=== PATIENT | female | born 1950 | race Caucasian/White ===

== ENCOUNTER 2016-09-16 12:35 | Emergency (ER) | payer MEDICARE, BC ==
--- NOTE | 2016-09-16 13:55 | ERNOTE ---
Abdominal HPI - General Chief Complaint: Constipation Time Seen by Provider: 09/16/16 13:33 Source: patient - Immun/Allergies/Home Medications Immunizatons: IMMUNIZATION HX Immunizations Up to Date Yes History of Influenza Vaccine No Hx Pneumococcal Vaccination No Allergies/Adverse Reactions: Allergies Penicillins Allergy (Unknown, Verified 09/16/16 13:04) trifluoperazine HCl [From Stelazine] Adverse Reaction (Intermediate, Verified 13:04) facial droop, lax tongue azithromycin [From Zithromax] Adverse Reaction (Mild, Verified 09/16/16 13:04) Nausea erythromycin base [Erythromycin Base] Adverse Reaction (Mild, Verified 09/16/16 13:04) Nausea Home Medications: HOME MEDICATIONS Alprazolam 0.25 mg PO DAILY PRN 12/21/13 [Last Taken Unknown] Aspirin [Aspirin Chewable] 81 mg PO DAILY 12/21/13 [Last Taken Unknown] Atenolol [Tenormin] 25 mg PO DAILY 12/21/13 [Last Taken Unknown] Isosorbide Mononitrate [Imdur] 30 mg PO DAILY 12/21/13 [Last Taken Unknown] Melatonin 10 mg PO HS 12/21/13 [Last Taken Unknown] Nitroglycerin 0.4 mg SL PRN PRN 12/21/13 [Last Taken Unknown] Lactobacillus Combo No.10 [Probiotic] 1 each PO DAILY 06/07/15 [Last Taken Unknown] Meloxicam 7.5 mg PO HS 06/07/15 [Last Taken Unknown] Omeprazole Magnesium [Prilosec Otc] 20 mg PO DAILY 06/07/15 [Last Taken Unknown] Sertraline HCl 25 mg PO DAILY 06/07/15 [Last Taken Unknown] Atorvastatin Calcium [Lipitor] 10 mg PO DAILY 09/16/16 [Last Taken Unknown] - History of Present Illness Narrative: Patient is here for concern about constipation. For years she has had infrequent bowel movement a couple of times a week, then about a year ago she started to have daily normal movements till about three weeks ago. Since then she started to have small hard bowel movements and started to feel bloated and full. She stopped working about three weeks ago and has been less active and maybe changed her diet some due to that. Yesterday she tried prunes and this morning a suppository. Shortly after that she vomited three times (some of the pop corn she had last night). She denies any abdominal pain just fullness, no fever, had a colonoscopy seven years ago. Since her five months ago she lost about 15 lbs Prior Abdominal Problems: Present: none Prior Treatment: Absent: recently seen, currently on antibiotics Review of Systems - Review of Systems Constitutional: Present: chills. Absent: recent illness, fever ENT: Absent: nose congestion, sore throat Respiratory: Absent: shortness of breath, cough Cardiology: Absent: chest pain Gastrointestinal/Abdominal: Present: See HPI Genitourinary: Present: no symptoms reported Neurological: Absent: headache - Patient's Past Medical History Patient History - Medical: Depression, GERD, UTI'S, Other Patient History - Cardiac/Respiratory: Coronary Heart Disease, Other Patient History - Cancer: No Hx of Cancer Patient History - Surgical Procedures: Colonoscopy, Cardiac stent, T & A, Other Patient History - Other: None - Social History Living Situations: home Abuse History: No History of abuse Psych History: Hx of Anxiety Alcohol Use: none Drug Use: none - Immunizations Immunizations Up to Date: Yes Hx Pneumococcal Vaccination: No History of Influenza Vaccine: No Physical Exam - Physical Exam General Appearance: Present: wd/wn, alert, no apparent distress, anxious Respiratory: Present: no respiratory distress, normal breath sounds, no accessory muscle use, lungs clear Cardiovascular/Chest: Present: regular rate, rhythm, no murmur Gastrointestinal/Abdominal: Present: normal bowel sounds, nondistended, soft, tenderness - mild throughout Neurological Exam: Present: alert, oriented, normal mood/affect Skin Exam: Present: normal color, warm/dry ED Progress - Results and Orders Patient's Lab Results:: I have reviewed the patient's lab results. - Vital Signs Patient's Vital Signs:: I have reviewed the patient's vital signs. Vital Signs: Vital Signs 09/16/16 12:57 Temperature 37.5 C Pulse Rate 98 Respiratory 12 Rate Blood Pressure 144/79 O2 Sat by Pulse 96 Oximetry - X-Ray X-Ray #1 X-Ray: abdomen - constipation, no other acute changes Interpretation: Reviewed by me - Progress/Reassessment Chief Complaint: Constipation Progress Note-Subjective: 09/16/16 14:36 explained test results and discussed treatment of constipation no vomiting here Departure - Departure Clinical Impression: Constipation Qualifiers: Constipation type: unspecified constipation type Qualified Code(s): K59.00 - Constipation, unspecified Disposition: Home self-care Condition: Good Instructions: Constipation, Adult, [id number] Additional Instructions: use magnesium citrate and dulcolax or senokot today repeat tomorrow if no results, maybe add fleets enema if worsening pain or repeat vomiting return to the ER otherwise follow up with your doctor, if bowel changes persist you might need to have further testing done Referrals: Stacy Funk, FLOOR TECH [Primary Care Provider] -
[2016-09-16 14:05] LABS: Hematocrit 42.5 % (37.0-47.0); Mean Cell Volume 87.4 fl (78-100); Mean Corpuscular Hemoglobin 28.8 pg (27-31); Mean Corpuscular Hgb Conc 32.9 g/dl (32-36); Mean Platelet Volume 9.6 fl (6.0-9.5); Neutrophil # 8.9 K/mm3 (1.3-6.0); Neutrophil % 94.9 % (42-75.0); Platelet Count 258 K/mm3 (150-450); Red Blood Count 4.86 M/mm3 (4.2-5.4); Red Cell Distribution Width 12.9 % (11.5-14.0); White Blood Count 9.4 K/mm3 (4.0-10.5)
[2016-09-16 14:17] LABS: Albumin * 4.1 gm/dl (3.4-5.0); BUN/Creatinine Ratio 16.8 (9.0-21.6); Bilirubin, Total 0.8 mg/dL (0.0-1.1); Ca. Corrected For Albumin 9.1 mg/dL (8.4-10.2); Calcium * 9.5 mg/dL (7.9-10.9); Carbon Dioxide 26.6 mmol/L (24-32.6); Potassium 4.6 mmol/L (3.4-4.6); Total Protein 7.4 gm/dL (6.2-8.2)
[2016-09-16] MEDS ORDERED: MAGNESIUM CITRATE 300 ML BTL PO ONE (14:39)
[2016-09-16] MEDS ORDERED: MAGNESIUM CITRATE 300 ML BTL ONE (14:47)
[2016-09-16 15:26] VITALS: BP 125/72
== END 2016-09-16 14:50 | disposition home or self-care (01) ==
LOC: ER 12:35
DX: K59.00 Constipation, unspecified (principal)

== ENCOUNTER 2017-06-19 11:12 | Emergency (ER) | payer MEDICARE, BC ==
[2017-06-19] MEDS ORDERED: ASPIRIN 81 MG TAB.CHEW ONE (11:16)
[2017-06-19] MEDS ORDERED: ASPIRIN 81 MG TAB.CHEW PO ONE (11:33)
[2017-06-19] MEDS ORDERED: NITROGLYCERIN 0.4 MG/TAB BTL SL ONE ×2 (11:33→11:41)
[2017-06-19 11:49] LABS: Hematocrit 36.1 % (37.0-47.0); Hemoglobin 12.4 gm/dL (12.5-16.0); Mean Cell Volume 88.3 fl (78-100); Mean Corpuscular Hemoglobin 30.3 pg (27-31); Mean Corpuscular Hgb Conc 34.3 g/dl (32-36); Mean Platelet Volume 9.5 fl (6.0-9.5); Neutrophil # 2.2 K/mm3 (1.3-6.0); Neutrophil % 51.2 % (42-75.0); Platelet Count 238 K/mm3 (150-450); Red Blood Count 4.09 M/mm3 (4.2-5.4); Red Cell Distribution Width 12.4 % (11.5-14.0); White Blood Count 4.4 K/mm3 (4.0-10.5)
[2017-06-19 12:04] LABS: Prothrombin Time (Patient) 10.3 Seconds (9.0-11.0)
[2017-06-19 12:11] LABS: INR 1.03 INR (0.90-1.10)
[2017-06-19 12:13] LABS: ALT 25 U/L (19-67); AST 22 U/L (0-48); Albumin * 3.7 gm/dl (3.4-5.0); Alkaline Phosphatase * 83 U/L (50-170); Anion Gap 10.6 mmol/L (6.8-13.8); BUN/Creatinine Ratio 17.6 (9.0-21.6); Bilirubin, Total 0.6 mg/dL (0.0-1.1); Blood Urea Nitrogen 19 mg/dL (3-23); Ca. Corrected For Albumin 9.2 mg/dL (8.4-10.2); Calcium * 9.3 mg/dL (7.9-10.9); Chloride 106 mmol/L (97-106); Glucose * 91 mg/dL (70-110); Potassium 4.6 mmol/L (3.4-4.6); Sodium 142 mmol/L (132-142); Total Protein 6.8 gm/dL (6.2-8.2); Troponin I Less than 0.017 ng/ml (0.00-0.10)
[2017-06-19] MEDS ORDERED: NITROGLYCERIN 1 INCH PACKET TD ONE (13:29)
[2017-06-19 13:41] VITALS: BP 140/65
--- NOTE | 2017-06-19 13:58 | ERNOTE ---
Chest Pain/Cardiac HPI Date of Service: 06/19/17 Chief Complaint: Chest Pain Time Seen by Provider: 06/19/17 11:28 Source: patient Exam Limitations: no limitations Immunizations: IMMUNIZATION HX Immunizations Up to Date Yes History of Influenza Vaccine No Hx Pneumococcal Vaccination No Allergies/Adverse Reactions: Allergies Penicillins Allergy (Unknown, Verified 06/19/17 11:30) trifluoperazine HCl [From Stelazine] Adverse Reaction (Intermediate, Verified 11:30) facial droop, lax tongue azithromycin [From Zithromax] Adverse Reaction (Mild, Verified 06/19/17 11:30) Nausea erythromycin base [Erythromycin Base] Adverse Reaction (Mild, Verified 06/19/17 11:30) Nausea Home Medications: HOME MEDICATIONS Alprazolam 0.25 mg PO DAILY PRN 12/21/13 [Last Taken Unknown] Aspirin [Aspirin Chewable] 81 mg PO DAILY 12/21/13 [Last Taken Unknown] Isosorbide Mononitrate [Imdur] 30 mg PO DAILY 12/21/13 [Last Taken Unknown] Melatonin 10 mg PO HS 12/21/13 [Last Taken Unknown] Nitroglycerin 0.4 mg SL PRN PRN 12/21/13 [Last Taken Unknown] Sertraline HCl 25 mg PO DAILY 06/07/15 [Last Taken Unknown] Atorvastatin Calcium [Lipitor] 10 mg PO DAILY 09/16/16 [Last Taken Unknown] Cholecalciferol (Vitamin D3) [Vitamin D] 2,000 unit PO DAILY 06/19/17 [Last Taken Unknown] Flaxseed Oil [Flax Seed Oil] 1,000 mg PO DAILY 06/19/17 [Last Taken Unknown] Metoprolol Succinate 12.5 mg PO DAILY 06/19/17 [Last Taken Unknown] Ubidecarenone/Vitamin E Mixed [Hse51-Vxs E 200 mg-20 Unit Sfg] 1 each PO DAILY 06/19/17 [Last Taken Unknown] Narrative: Patient presents to the ED with chest pain. She relates that she has been having stuttering chest pain since Friday. This will come and go without clear cause. She did have one episode of exertional CP yesterday but she is not sure if it was truly exertional or just happened to occur when she was walking. Last night she was awakened by CP and took a NTG that relieved her pain. Currently pain free but earlier today with the pain had radiation down the arm associated with nausea. No acute SOB or diaphoresis. Currently pain free. Stuttering pain for 4 days now. Timing: intermittent Severity/Quality: mild Location: other - central Chest Pain Radiation: arms Activities at Onset: none Modifying Factors - Improves: Present: other - NTG Modifying Factors - Worsens: Present: nothing Nitro Today/Relief: 0.4 mg x 1 Aspirin Treatment Today: provided by ED Associated Symptoms: Absent: syncope, fever/chills, vomiting, abdominal pain Prior Chest Pain/Cardiac Workup: Reports: prior chest pain Prior Treatment: Denies: recently seen Review of Systems - Review of Systems Constitutional: Absent: fever Respiratory: Absent: cough Cardiology: Present: chest pain Gastrointestinal/Abdominal: Absent: abdominal pain Genitourinary: Absent: dysuria Neurological: Absent: weakness All Other Systems: All systems neg except as marked - Patient's Past Medical History Patient History - Medical: Depression, GERD, UTI'S, Other Patient History - Cardiac/Respiratory: Coronary Heart Disease, Other Patient History - Cancer: No Hx of Cancer Patient History - Surgical Procedures: Colonoscopy, Cardiac stent, T & A, Other Patient History - Other: None - Social History Abuse History: No History of abuse Psych History: Hx of Anxiety Smoking Status: Never smoker Have you smoked in the past 12 months: No Do you dip or chew tobacco: No - Immunizations Immunizations Up to Date: Yes Hx Pneumococcal Vaccination: No History of Influenza Vaccine: No Physical Exam - Physical Exam General Appearance: Present: alert, no apparent distress Head Exam: Present: normal inspection, no evidence of injury Eye Exam: Normal inspection: bilateral, PERRL: bilateral Ears, Nose, Throat: Present: normal ENT inspection Neck: Present: normal inspection, nontender Respiratory: Present: no respiratory distress, normal breath sounds, no accessory muscle use, lungs clear Cardiovascular/Chest: Present: regular rate, rhythm, no murmur, normal peripheral pulses Gastrointestinal/Abdominal: Present: normal bowel sounds, nontender, soft. Absent: tenderness Back Exam: Present: normal range of motion Extremity Exam: Present: normal inspection Neurological Exam: Present: alert, normal mood/affect, no motor/sensory deficits. Absent: tile mechanic helper II-XII nml as tested Skin Exam: Present: normal color, warm/dry ED Progress - Results and Orders Patient's Lab Results:: I have reviewed the patient's lab results. - Vital Signs Patient's Vital Signs:: I have reviewed the patient's vital signs. Vital Signs: Vital Signs 06/19/17 06/19/17 06/19/17 11:24 11:29 12:00 Temperature 37.2 C Pulse Rate 71 70 62 Respiratory 18 12 17 Rate Blood Pressure 132/59 115/66 124/68 O2 Sat by Pulse 98 96 98 Oximetry 06/19/17 06/19/17 06/19/17 12:34 13:11 13:40 Temperature Pulse Rate 62 62 66 Respiratory 13 16 14 Rate Blood Pressure 134/77 122/65 140/65 O2 Sat by Pulse 100 98 100 Oximetry - EKG EKG: NSR EKG read: Interp. by me EKG Comments: NSR rate 64. Non-specific ST/T wave changes, no STEMI. - X-Ray X-Ray #1 X-Ray: chest Interpretation: Interp. by me X-ray Comments: I reviewed images and official radiology report - Progress/Reassessment Chief Complaint: Chest Pain Progress Note-Subjective: 06/19/17 13:[address] Conway who accepts transfer to [facility]. patient refused ambulance transfer but will go by private car. Given this I will sign her out AMA. She understands risks of this. AMA from my care as she will not transfer by ambulance by her request. Currently pain free. I had arranged transfer and accepted by Dr Acosta, patient declines this and will be taken by private vehicle. Departure Clinical Impression: Chest pain - Departure Disposition: Against medical advice Condition: Stable Additional Instructions: I recommend you be transferred by ambulance. you are leaving against medical advice, please return in you reconsider. Referrals: Stacy Funk, [employer] [Primary Care Provider] -
== END 2017-06-19 14:00 | disposition left against medical advice (07) ==
LOC: ER 11:12
DX: R07.9 Chest pain, unspecified (principal); Z87.440 Personal history of urinary (tract) infections; Z53.29 Procedure and treatment not carried out because of patient's decision for other reasons; Z95.5 Presence of coronary angioplasty implant and graft

== ENCOUNTER 2019-03-01 08:30 | Inpatient (IN) ==
--- NOTE | 2019-02-10 11:35 | ANES ---
Anesthesia Pre Procedure Eval HOME MEDICATIONS Aspirin [Aspirin Chewable] 81 mg PO DAILY 12/21/13 [Last Taken Unknown] Isosorbide Mononitrate [Imdur] 30 mg PO DAILY 12/21/13 [Last Taken Unknown] Nitroglycerin 0.4 mg SL PRN PRN 12/21/13 [Last Taken Unknown] Cholecalciferol (Vitamin D3) [Vitamin D] 2,000 unit PO DAILY 06/19/17 [Last Taken Unknown] atenolol 25 mg tablet 25 mg PO DAILY 03/14/18 [Last Taken Unknown] atorvastatin 10 mg tablet 10 mg PO HS tab 03/14/18 [Last Taken Unknown] melatonin 5 mg tablet See Rx Instructions PO HS 03/14/18 [Last Taken Unknown] prasterone (dhea) 25 mg capsule 25 mg PO DAILY 03/14/18 [Last Taken Unknown] sertraline 50 mg tablet 50 mg PO DAILY 03/14/18 [Last Taken Unknown] coconut oil 1,000 mg capsule 2,000 mg PO DAILY cap 03/19/18 [Last Taken Unknown] coenzyme Q10 200 mg/gram oral powder 200 mg PO DAILY g 03/19/18 [Last Taken Unknown] eszopiclone 2 mg tablet 2 mg PO HS 03/19/18 [Last Taken Unknown] fish oil 400 mg-flaxseed 400 mg-prim,blk scale tank operator,borag oils 200 mg capsule 1 cap PO DAILY cap 03/19/18 [Last Taken Unknown] magnesium stearate powder 1 ea MISCELLANEOUS DAILY g 03/19/18 [Last Taken Unkno wn] turmeric root extract 500 mg capsule 500 mg PO DAILY 03/19/18 [Last Taken Unknown] diclofenac 1 % topical gel 1 appl TP QID PRN #300 g 01/07/19 [Last Taken Unknown] Multivitamin [Daily Multiple Vitamin] 1 ea PO DAILY 02/10/19 [Last Taken Unknown] Allergies/Adverse Reactions: Allergies Allergy/AdvReac Type Severity Reaction Status Date / Time Penicillins Allergy Unknown unknown Verified 02/10/19 08:33 trifluoperazine HCl AdvReac Intermediate facial Verified 02/10/19 08:33 [From Stelazine] droop, lax tongue azithromycin [From Zithromax] AdvReac Mild Nausea/Vomi Verified 02/10/19 08:33 ting erythromycin base AdvReac Mild Nausea Verified 02/10/19 08:33 [Erythromycin Base] atorvastatin AdvReac causes Verified 02/10/19 08:33 body aches simvastatin AdvReac Causes Verified 02/10/19 08:33 body aches - Planned Procedure Planned Procedure: Arthroplasty Right Total Hip Medication List Reviewed:: Yes Allergies Verified: Yes Medical History (Updated 02/10/19 @ 08:32 by Elena Raymundo RN) Osteoarthritis of hip (Chronic) Medial meniscus tear (Chronic) Anxiety and depression Onset Date: 06/16/15 Coronary artery disease Onset Date: 06/16/15 Diverticulosis of colon Onset Date: Unknown scattered GERD (gastroesophageal reflux disease) Onset Date: 02/17/13 Hyperlipidemia Onset Date: Unknown Insomnia, unspecified Onset Date: Unknown Sleep apnea Onset Date: Unknown wears CPAP Surgical History (Updated 02/10/19 @ 08:32 by Elena Raymundo RN) History of arthroscopic knee surgery Onset Date: 09/2011 left- meniscus tear; 01/04/14 yun-left medial meniscectomy/partial lateral meniscectomy History of colonoscopy Onset Date: 09/29/09 [place] History of tonsillectomy Onset Date: 1955 bunion surgery Onset Date: Unknown right foot heart catheterization Onset Date: 05/12/12 stent Onset Date: 05/12/12 LAD, x 3 ventriculography Onset Date: 05/12/12 Family History (Updated 03/14/18 @ 11:27 by Chelsie Garcia) Mother Hypertension Dementia Glaucoma Cataract Parkinson's disease Father , 80 CVA (cerebral vascular accident) carotid endartecterectomy - Family Anesthesia History Family History:: no untoward family reactions to anesthesia, no familial bleeding tendencies, no family history of clotting disorders - Does C/O "Sleeps way too long", no family history of premature - Airway/Neck/Teeth Denture Type: Partial upper, Partial lower Neck Exam: full range of motion Mallampatti Score: 2 Thyromental (T-M) distance: > 6 cm Mandibulo Hyoid distance: > 3 cm - Respiratory Respiratory History: sleep apnea, CPAP/BiPAP home use Smoking Status: Never smoker Sleep Apnea currently treated: Yes Sleep Apnea by current assessment: Yes - Cardiovascular Cardiac History: angina, arrhythmia - tachycardia by history, Rx with Beta bertha, hypertension, hyperlipidemia Heart Sounds: S1 & S2, Regular, Murmur - grade I - Anesthesia Assessment and Plan ASA Class: PS, III Anesthesia Type Plan: Spinal
[~2019-03-01 08:30] MED LIST: MORPHINE SULFATE 15 MG TABLET.SA PO PRN; ROPIVACAINE HCL/PF 100 MG, EPINEPHrine 0.2 MG, KETOROLAC TROMETHAMINE 30 MG in NORMAL S... IJ PRN; TRANEXAMIC ACID 1,000 MG in NORMAL SALINE 100 ML IV PRN; ceFAZolin SODIUM 1 GM VIAL IV PRN
[2019-03-01] MEDS: RINGER'S SOLUTION,LACTATED 1,000 ML IV PRN ×3 (09:13→11:40)
--- NOTE | 2019-03-01 09:29 | ANES ---
Anesthesia Pre Procedure Eval Vitals/Labs: Last Vital Signs Temp 36.8 C 03/01/19 08:45 Pulse 73 03/01/19 08:45 Resp 18 03/01/19 08:45 BP 110/69 03/01/19 08:45 Pulse Ox 95 03/01/19 08:45 HOME MEDICATIONS Aspirin [Aspirin Chewable] 81 mg PO DAILY 12/21/13 [Last Taken 02/27/19] Isosorbide Mononitrate [Imdur] 30 mg PO DAILY 12/21/13 [Last Taken 03/01/19] Nitroglycerin 0.4 mg SL PRN PRN 12/21/13 [Last Taken Unknown] Cholecalciferol (Vitamin D3) [Vitamin D] 2,000 unit PO DAILY 06/19/17 [Last Taken 02/27/19] atenolol 25 mg tablet 25 mg PO DAILY 03/14/18 [Last Taken 03/01/19] atorvastatin 10 mg tablet 10 mg PO HS tab 03/14/18 [Last Taken 02/28/19] melatonin 5 mg tablet See Rx Instructions PO HS 03/14/18 [Last Taken 02/28/19] prasterone (dhea) 25 mg capsule 25 mg PO DAILY 03/14/18 [Last Taken 02/27/19] sertraline 50 mg tablet 50 mg PO DAILY 03/14/18 [Last Taken 02/27/19] coconut oil 1,000 mg capsule 2,000 mg PO DAILY cap 03/19/18 [Last Taken 02/27/19] coenzyme Q10 200 mg/gram oral powder 200 mg PO DAILY g 03/19/18 [Last Taken 02/27/19] eszopiclone 2 mg tablet 2 mg PO HS 03/19/18 [Last Taken 02/28/19] fish oil 400 mg-flaxseed 400 mg-prim,blk associate scientist,borag oils 200 mg capsule 1 cap PO DAILY cap 03/19/18 [Last Taken 02/27/19] magnesium stearate powder 1 ea MISCELLANEOUS DAILY g 03/19/18 [Last Taken 02/28/19] turmeric root extract 500 mg capsule 500 mg PO DAILY 03/19/18 [Last Taken 02/27/19] diclofenac 1 % topical gel 1 appl TP QID PRN #300 g 01/07/19 [Last Taken 02/22/19] Multivitamin [Daily Multiple Vitamin] 1 ea PO DAILY 02/10/19 [Last Taken 02/27/19] estradiol 0.01% (0.1 mg/gram) vaginal cream VG #43 g 02/25/19 [Last Taken Unknown] estradiol 2 mg (7.5 mcg/24 hour) vaginal ring VG #1 ea 02/25/19 [Last Taken Unknown] modafinil 100 mg tablet 100 mg PO BID tab 02/25/19 [Last Taken 02/27/19] Allergies/Adverse Reactions: Allergies Allergy/AdvReac Type Severity Reaction Status Date / Time trifluoperazine HCl AdvReac Intermediate facial Verified 03/01/19 08:41 [From Stelazine] droop, lax tongue erythromycin base AdvReac Mild Nausea Verified 03/01/19 08:41 [Erythromycin Base] Penicillins AdvReac Mild vomitting, Verified 03/01/19 08:41 age 6 simvastatin AdvReac Causes Verified 03/01/19 08:41 body aches - Planned Procedure Planned Procedure: Arthroplasty Right Total Hip Medication List Reviewed:: Yes Allergies Verified: Yes Medical History (Updated 02/10/19 @ 08:32 by Elena Raymundo RN) Osteoarthritis of hip (Chronic) Medial meniscus tear (Chronic) Anxiety and depression Onset Date: 06/16/15 Coronary artery disease Onset Date: 06/16/15 Diverticulosis of colon Onset Date: Unknown scattered GERD (gastroesophageal reflux disease) Onset Date: 02/17/13 Hyperlipidemia Onset Date: Unknown Insomnia, unspecified Onset Date: Unknown Sleep apnea Onset Date: Unknown wears CPAP Surgical History (Updated 02/10/19 @ 08:32 by Elena Raymundo RN) History of arthroscopic knee surgery Onset Date: 09/2011 left- meniscus tear; 01/04/14 yun-left medial meniscectomy/partial lateral meniscectomy History of colonoscopy Onset Date: 09/29/09 [place] History of tonsillectomy Onset Date: 1955 bunion surgery Onset Date: Unknown right foot heart catheterization Onset Date: 05/12/12 stent Onset Date: 05/12/12 LAD, x 3 ventriculography Onset Date: 05/12/12 Family History (Updated 03/14/18 @ 11:27 by Chelsie Garcia) Mother Hypertension Dementia Glaucoma Cataract Parkinson's disease Father , 80 CVA (cerebral vascular accident) carotid endartecterectomy - Airway/Neck/Teeth Within Normal Limits:: Yes Teeth Condition: intact Denture Type: Partial upper, Partial lower, Perm crown/bridge Mallampatti Score: 2 Thyromental (T-M) distance: > 6 cm Mandibulo Hyoid distance: > 3 cm - Respiratory Respiratory Physical: lungs clear Discussed smoking cessation including day of surgery: No Sleep Apnea currently treated: Yes - Cardiovascular Tolerate Activity: Fair Heart Sounds: S1 & S2, Regular - Anesthesia Assessment and Plan ASA Class: PS, III Anesthesia Type Plan: Spinal
[2019-03-01] MEDS ORDERED: ACETAMINOPHEN 500 MG TABLET PO PRN (11:46)
[2019-03-01] MEDS ORDERED: MORPHINE SULFATE 2 MG/ML DISP.SYRIN IV PRN (11:46)
[2019-03-01] MEDS ORDERED: diphenhydrAMINE HCL 50 MG/ML VIAL IV PRN (11:46)
[2019-03-01] MEDS ORDERED: MAG HYDROX/ALUMINUM HYD/SIMETH 30 ML UDC PO PRN (11:46)
[2019-03-01] MEDS ORDERED: DEXTROSE 5%-LACTATED RINGERS 1,000 ML IV PRN (11:46)
[2019-03-01] MEDS ORDERED: ZOLPIDEM TARTRATE 5 MG TABLET PO PRN (11:46)
[2019-03-01] MEDS ORDERED: ONDANSETRON HCL/PF 2 MG/ML VIAL IV PRN (11:46)
[2019-03-01] MEDS ORDERED: MAGNESIUM HYDROXIDE 30 ML UDC PO PRN (11:46)
[2019-03-01] MEDS ORDERED: NITROGLYCERIN 0.4 MG/TAB BTL SL PRN (11:48)
--- NOTE | 2019-03-01 11:53 | OR ---
Operative Report - Dictated Report Narrative: Date: 03/01/2019 Preoperative diagnosis: Right hip degenerative joint disease. Postoperative diagnosis: Right hip degenerative joint disease. Procedure: Right total hip arthroplasty. Surgeon: Mauri Herrera M.D. Mold Cleaner: Bryant Leonardo PA-C (provided an essential set of skilled, educated and assisted with transfer, positioning, prepping, draping, manipulation, traction, irrigation, suturing, and placement of dressings all of which cannot be performed by the available surgical crew) Anesthesia: Spinal and local periarticular joint injection. Complications: None Specimens: Bone. Estimated blood loss: 100 milliliters. Retained implants: Depuy Dane size 3 femoral stem high offset. Size 52 millimeter outside diameter 3-hole [place] Gription acetabular cup. 52 millimeter outside by 36 millimeter inside diameter highly cross-linked acetabular liner. 36 millimeter diameter +1.5 millimeter ceramic femoral head. Cancellous 6.5mm screw 30 millimeter length Indications: Mrs. Jennings is a 68-year-old female who has had long-standing right hip pain and arthrosis. This patient was followed in my clinic for period of time with significant complaints of right hip pain consistent with arthritic changes. She failed conservative measures including but not limited to activity modification, passage of time, medications, and other conservative measures. Patient wished to proceed with surgical treatment. The risks, benefits, and alternatives were discussed in clinic. The risks of , blood clots, bleeding, infection, nerve/tendon blood vessel/ injury, malposition of components, dislocation and/or instability of joint, intraoperative fracture, postoperative limited range of motion, persistent pain, failure of components, and need for additional procedures. Patient wished to proceed. Consent was obtained after answering all questions. Procedure: After marking the correct extremity on the floor, the patient was taken to the operating room. A timeout was performed. IV antibiotics consisting of Ancef were administered prior to the procedure. A spinal anesthetic was induced by anesthesia. A Moore catheter was inserted. The patient was then transitioned to a lateral position on a well-padded pegboard. An axillary roll was placed. The head was in neutral position. The non- operative down leg was well-padded with SCD and ROHITH hose in place. The arms were supported and padded to protect from any undue pressure on the bony prominences and nerves. A well-padded anterior and posterior pelvic and chest posts were secured in order to maintain a stable position of the pelvis. This was placed so that the pelvis was perpendicular to the floor. The body was in line with the pelvis. Once it was felt that we had protected all the bony prominences and the patient was well secured with a safety belt as well, the leg was pre-scrubbed with alcohol, prepped and draped in a standard sterile fashion. A standard anterior lateral hip incision was marked out over the greater trochanter. Ioban drapes were then placed. The skin incision was then made. Sharp dissection with a scalpel utilizing cautery for hemostasis was carried out down to the gluteus and iliotibial band fascia. This was split in line with the skin incision. The greater trochanter bursa was excised. The anterior and posterior margins of the abductor tendon were identified. The anterior 1/2-1/3 of the tendon was tagged and reflected off the greater trochanter leaving a sleeve of tendon for repair at the completion of the case. This exposed the underlying hip joint capsule. A limb length stitch was placed in the skin and referencedd off a radha on the greater trochanter for evaluation of intraoperative limb lengths. An inverted T-type capsulotomy was made extending this up to the brim of the acetabulum. Using Homans to assist with elevation of the soft tissues off the anterior, superior, and inferior aspects of the femoral neck, the hip was then placed in a figure 4 position and the femoral head was dislocated. With the leg in an externally rotated and adducted position, the cutting flag was utilized in order to radha for a standard femoral neck cut approximately a fingerbreadth above the level of the lesser trochanter. This was done with reference to pre-operative films and overall alignment. This was done while protecting the surrounding soft tissues with Homans. The femoral head was then removed and sized for guidance on preparation of the acetabulum. It was noted that there was loss of articular cartilage on both the femoral head and weightbearing portions of the acetabulum. We then returned the leg to the table and turned our attention to the acetabulum. While protecting the surrounding soft tissues, the labrum and remaining tissue in the fovea were excised using a scalpel and cautery. A series of reamers up to size 52 millimeter were utilized to prepare the acetabulum. The final reamer had good purchase and exposed the bleeding subchondral bone. The acetabulum was then thoroughly irrigated ensuring that all bony and cartilaginous materials were removed, and the final acetabular shell was impacted into place. This was placed in approximately 45 degrees of abduction and 20 degrees of anteversion utilizing the outrigger and body axis for alignment. This had a good press fit. 1 6.5mm cancellous screw was placed in the superior posterior quadrant of the acetabulum. The shell was then thoroughly irrigated and the final polyethylene was impacted into place ensuring that it seated completely. This was then protected with a sponge while we returned our attention to the femur. With the leg in a figure 4 position, utilizing Homans for soft tissue protection, a box cutting osteotome, followed by Charnley awl, followed by serial reamers and broaches were utilized in order to prepare the femur. It was found that a size 3 broach gave good axial and rotational stability. The calcar reamer was utilized in order to clean up the cut edges. The proximal femur was visualized to ensure that there were no signs of fracture. A series of heads and necks were trialed. It was found that a high offset neck and a + 1.5 femoral head gave good overall stability. There was minimal longitudinal instability. With the leg in the position of sleep, the femoral head was well covered. Hip range of motion was able to reach full extension and external rotation to greater than 75 degrees prior to impingement along the posterior acetabulum. The hip was able to be flexed to greater than 90 degrees with internal rotation greater than 60 degrees prior to anterior impingement. The limb lengths were near equal based on comparison to the contralateral side and the prior placed limb length stitch. At this point it was felt these were the appropriately sized femoral components as well as neck and femoral head. The trial implants were removed. The femur was thoroughly irrigated. The final implants were impacted into place, and the hip was reduced. After ensuring that there was no damage to the proximal femur, the standard periarticular joint injection of ropivacaine, Toradol, and epinephrine were injected into the joint capsule and surrounding soft tissues. Anesthesia then administered intravenous tranexamic acid. The capsule was repaired with a single interrupted #1 Vicryl. The abductor tendon was repaired to the greater trochanter utilizing #5 Ethibond through drill holes. This was oversewn with #1 Vicryl. The fascia was closed with interrupted #1 Vicryl and strata fix suture. The wounds were thoroughly irrigated as we closed in layers. The deep and subcutaneous fat layers were closed with 0 and 3-0 Vicryl respectively. The subcutaneous tissue was closed with a running 3-0 Vicryl and the skin alonso. All sponge, needle, blade, and instrument counts were correct prior to closing the wounds. Sterile dressings consisting of xeroform, 4 x 4's, and tape were applied. The patient was awoken and transferred to her hospital bed and then to the postanesthesia care unit in stable condition. Postoperative condition: The plan is to admit to the medical/surgical inpatient floor postoperatively. There will be a projected 3 midnight hospital stay. Postoperatively 24 hours of IV antibiotics, pain control, physical therapy, occupational therapy, and medical comanagement will be utilized. Patient will be weightbearing as tolerated with anterior hip precautions. Postoperative films will be obtained in the recovery room.
--- NOTE | 2019-03-01 11:57 | ANES ---
Post Anesthesia Discharge - Transfer of Care Transfer of Care handoff given to nurse: Yes - Discharge from PACU Discharge from PACU when meets criteria: Yes - Discharge to ASU Discharge to ASU-no complications/pt stable: Yes
[2019-03-01] MEDS: ceFAZolin SODIUM 1 GM in DEXTROSE 5 % IN WATER 100 ML IV SCH ×4 (12:50→19:10)
[2019-03-01] MEDS: KETOROLAC TROMETHAMINE 15 MG/ML VIAL IV SCH ×2 (12:50→19:10)
--- NOTE | 2019-03-01 12:58 | ANES ---
Post Anesthesia Assessment - Vital Signs Vitals: Last Vital Signs Temp 36.2 C 03/01/19 12:25 Pulse 71 03/01/19 12:25 Resp 16 03/01/19 12:25 BP 114/59 03/01/19 12:25 Pulse Ox 99 03/01/19 12:25 Airway Patency: Normal - Mental Status Level Of Consciousness: Awake - Pain Level Pain Score: 2 - N/V Assessment Nausea/Vomiting Presence: None Dehydration:: No
[2019-03-01] MEDS: oxyCODONE HCL/ACETAMINOPHEN 1 TAB TABLET PO PRN (13:16)
[2019-03-01] MEDS: MORPHINE SULFATE 15 MG TABLET.SA PO SCH (21:11)
[2019-03-01] MEDS: ROSUVASTATIN CALCIUM 10 MG TABLET PO SCH (21:12)
[2019-03-01] MEDS: SENNOSIDES/DOCUSATE SODIUM 1 TAB TABLET PO SCH (21:16)
[2019-03-01] MEDS: MELATONIN PO SCH (22:38)
[2019-03-01] MEDS: ESZOPICLONE 2 MG PO SCH (22:38)
[2019-03-01] MEDS: [UNRECOGNIZED DRUG - OTHER] PO SCH (22:41)
[2019-03-02] MEDS: KETOROLAC TROMETHAMINE 15 MG/ML VIAL IV SCH ×4 (01:32→19:23)
[2019-03-02] MEDS: ceFAZolin SODIUM 1 GM in DEXTROSE 5 % IN WATER 100 ML IV SCH ×2 (01:33)
[2019-03-02 05:45] LABS: Hematocrit 29.5 % (37.0-47.0); Hemoglobin 9.7 gm/dL (12.5-16.0); Mean Cell Volume 92.8 fl (78-100); Mean Corpuscular Hemoglobin 30.5 pg (27-31); Mean Corpuscular Hgb Conc 32.9 g/dl (32-36); Mean Platelet Volume 9.4 fl (8-12.5); Platelet Count 198 K/mm3 (150-450); Red Blood Count 3.18 M/mm3 (4.2-5.4); Red Cell Distribution Width 13.4 % (11.5-14.0); White Blood Count 5.1 K/mm3 (4.0-10.5)
[2019-03-02 05:48] LABS: BUN/Creatinine Ratio 12.2 (9.0-21.6); Calcium * 8.5 mg/dL (7.9-10.9); Carbon Dioxide 29.4 mmol/L (24-32.6); Estimated Creat Clear 51.3; Potassium 4.4 mmol/L (3.4-4.6)
[2019-03-02] MEDS: MODAFINIL 100 MG PO SCH ×2 (08:11→12:15)
[2019-03-02] MEDS: MORPHINE SULFATE 15 MG TABLET.SA PO SCH ×2 (08:12→21:32)
[2019-03-02] MEDS: MULTIVITAMINS 1 CAP CAPSULE PO SCH (08:12)
[2019-03-02] MEDS: ISOSORBIDE MONONITRATE 30 MG TAB.SR.24H PO SCH (08:12)
[2019-03-02] MEDS: SERTRALINE HCL 50 MG TABLET PO SCH (08:13)
[2019-03-02] MEDS: COENZYME Q10 200 MG PO SCH (08:15)
[2019-03-02] MEDS: PRASTERONE PO SCH (08:15)
[2019-03-02] MEDS: COCONUT OIL 2000 MG PO SCH (08:15)
[2019-03-02] MEDS: [UNRECOGNIZED DRUG - OTHER] PO SCH (08:16)
[2019-03-02] MEDS: [UNRECOGNIZED DRUG - OTHER] PO SCH (08:16)
[2019-03-02] MEDS: CHOLECALCIFEROL 1,000 UNIT CAPSULE PO SCH (08:16)
[2019-03-02] MEDS: Turmeric Root Extract [Turmeric] 500 MG PO SCH (08:16)
[2019-03-02] MEDS ORDERED: ATENOLOL 25 MG TABLET PO SCH (09:00)
[2019-03-02] MEDS: ENOXAPARIN SODIUM 40 MG/0.4 ML SYRG SC SCH (10:13)
--- NOTE | 2019-03-02 17:59 | PN ---
Subjective - Date and Time Seen Date: 03/02/19 Time: 08:00 Subjective Narrative: Subjective: Reports mild hip pain. Was able to get up to the chair with therapy. Pain is well-controlled. Voiding without any complications. Tolerating by mouth intake. Denies any nausea or vomiting. Denies calf pain. Slept well. Physical exam: Alert and oriented to person, place and time Right lower extremity: Palpable dorsalis pedis pulse. Sensation grossly intact to light touch. Dressings clean and dry. Able to flex and extend ankle and toes. No excessive drainage. Calf and thigh are soft and nontender. Assessment: Postop day 1 status post right total hip arthroplasty. Plan: Due to the need for pain control, post-operative limited mobility, protection of the surgical site and joint, monitoring of the wound, and the management of chronic medical conditions, she requires continued inpatient care. Continue with physical and occupational therapy weightbearing as tolerated. Continue with anticoagulation. 24 hours postoperative prophylactic antibiotics. Pain control with goal to rely on oral medications. Continue bowel regimen. Will need 6 weeks with walker or assitive device to protect joint while ambulating during the recovery process. Discharge planning. Discontinue Moore catheter. Objective - Vitals Vitals: Last Vital Signs Temp 37.0 C 03/02/19 15:29 Pulse 94 03/02/19 15:29 Resp 18 03/02/19 15:29 BP 112/56 03/02/19 15:29 Pulse Ox 98 03/02/19 15:29 - Abnormal Lab Findings Abnormal Lab Findings: Abnormal Lab Results 03/02/19 03/02/19 Range/Units 05:37 05:37 RBC 3.18 L (4.2-5.4) M/mm3 Hgb 9.7 L (12.5-16.0) gm/dL Hct 29.5 L (37.0-47.0) % Chloride 107 H (97-106) mmol/L Random Glucose 121 H (70-110) mg/dL Cauti Physician Documentation - Urinary Catheter Management 2-way Urethral Date of Insertion: 03/01/19 Time of Insertion: 10:20 Date of Removal: 03/02/19 Time of Removal: 04:56 Assessment/Plan - Problems/Diagnosis (1) S/P total hip arthroplasty Problem: Acute Qualifiers: Laterality: right Qualified Code(s): Z96.641 - Presence of right artificial hip joint (2) Acute blood loss anemia Problem: Acute (3) Hypertension Problem: Chronic (4) Hyperlipidemia Problem: Chronic (5) Anxiety Problem: Chronic (6) Depressed mood Problem: Chronic (7) Insomnia Problem: Chronic
[2019-03-02] MEDS: MELATONIN PO SCH (21:30)
[2019-03-02] MEDS: ROSUVASTATIN CALCIUM 10 MG TABLET PO SCH (21:32)
[2019-03-02] MEDS: ATENOLOL 25 MG TABLET PO SCH (21:32)
[2019-03-02] MEDS: SENNOSIDES/DOCUSATE SODIUM 1 TAB TABLET PO SCH (21:32)
[2019-03-02] MEDS: ESZOPICLONE 2 MG PO SCH (22:59)
[2019-03-02] MEDS: [UNRECOGNIZED DRUG - OTHER] PO SCH (22:59)
[2019-03-03] MEDS: KETOROLAC TROMETHAMINE 15 MG/ML VIAL IV SCH ×2 (01:44→07:57)
[2019-03-03] MEDS: MODAFINIL 100 MG PO SCH ×2 (07:57→11:57)
[2019-03-03] MEDS: CHOLECALCIFEROL 1,000 UNIT CAPSULE PO SCH (09:58)
[2019-03-03] MEDS: SERTRALINE HCL 50 MG TABLET PO SCH (09:58)
[2019-03-03] MEDS: ISOSORBIDE MONONITRATE 30 MG TAB.SR.24H PO SCH (09:58)
[2019-03-03] MEDS: MULTIVITAMINS 1 CAP CAPSULE PO SCH (09:58)
[2019-03-03] MEDS: ENOXAPARIN SODIUM 40 MG/0.4 ML SYRG SC SCH (10:03)
[2019-03-03] MEDS: MORPHINE SULFATE 15 MG TABLET.SA PO SCH ×2 (10:03→21:06)
[2019-03-03] MEDS: COCONUT OIL 2000 MG PO SCH (10:05)
[2019-03-03] MEDS: PRASTERONE PO SCH (10:06)
[2019-03-03] MEDS: [UNRECOGNIZED DRUG - OTHER] PO SCH (10:06)
[2019-03-03] MEDS: COENZYME Q10 200 MG PO SCH (10:06)
[2019-03-03] MEDS: Turmeric Root Extract [Turmeric] 500 MG PO SCH (10:06)
--- NOTE | 2019-03-03 13:10 | PN ---
Subjective - Date and Time Seen Date: 03/03/19 Time: 13:08 Subjective Narrative: Subjective: Reports mild hip pain. Was able to walk in the jeff with therapy. Pain is well-controlled. Voiding without any complications. Tolerating by mouth intake. Denies any nausea or vomiting. Physical exam: Alert and oriented to person, place and time Right lower extremity: Palpable dorsalis pedis pulse. Sensation grossly intact to light touch. Dressings clean and dry. Able to flex and extend ankle and toes. No excessive drainage. Calf and thigh are soft and nontender. Assessment: Postop day 2 status post right total hip arthroplasty. Plan: Due to the need for pain control, post-operative limited mobility, protection of the surgical site and joint, monitoring of the wound, and the management of chronic medical conditions, she requires continued inpatient care. Continue with physical and occupational therapy weightbearing as tolerated. Continue with anticoagulation. Pain control with goal to rely on oral medications. Continue bowel regimen. Will need 6 weeks with walker or assitive device to protect joint while ambulating during the recovery process. Discharge planning- due to her need for additional therapy as well as her social situation she is planning on going to a custodial facility for additional therapy prior to returning home. Case management is working on these arrangements. Objective - Vitals Vitals: Last Vital Signs Temp 37.3 C 03/03/19 10:24 Pulse 86 03/03/19 10:24 Resp 16 03/03/19 10:24 BP 97/53 03/03/19 10:24 Pulse Ox 97 03/03/19 10:24 Cauti Physician Documentation - Urinary Catheter Management 2-way Urethral Date of Insertion: 03/01/19 Time of Insertion: 10:20 Date of Removal: 03/02/19 Time of Removal: 04:56 Assessment/Plan - Problems/Diagnosis (1) S/P total hip arthroplasty Problem: Acute Qualifiers: Laterality: right Qualified Code(s): Z96.641 - Presence of right artificial hip joint (2) Acute blood loss anemia Problem: Acute (3) Hypertension Problem: Chronic (4) Hyperlipidemia Problem: Chronic (5) Anxiety Problem: Chronic (6) Depressed mood Problem: Chronic (7) Insomnia Problem: Chronic
[2019-03-03] MEDS: SENNOSIDES/DOCUSATE SODIUM 1 TAB TABLET PO SCH (21:07)
[2019-03-03] MEDS: ROSUVASTATIN CALCIUM 10 MG TABLET PO SCH (21:07)
[2019-03-03] MEDS: ATENOLOL 25 MG TABLET PO SCH (21:09)
[2019-03-03] MEDS: MELATONIN PO SCH (21:09)
[2019-03-03] MEDS: [UNRECOGNIZED DRUG - OTHER] PO SCH (22:29)
[2019-03-03] MEDS: ESZOPICLONE 2 MG PO SCH (22:29)
[2019-03-04] MEDS: oxyCODONE HCL/ACETAMINOPHEN 1 TAB TABLET PO PRN ×2 (06:51→11:39)
--- NOTE | 2019-03-04 07:52 | DS ---
(1) S/P total hip arthroplasty Problem: Acute Qualifiers: Laterality: right Qualified Code(s): Z96.641 - Presence of right artificial hip joint (2) Acute blood loss anemia Problem: Acute (3) Hypertension Problem: Chronic (4) Hyperlipidemia Problem: Chronic (5) Anxiety Problem: Chronic (6) Depressed mood Problem: Chronic (7) Insomnia Problem: Chronic Description of Stay: Mrs. Jennings was admitted to the floor after undergoing right total hip arthroplasty. Tolerated this well. Was admitted to the floor postoperatively for 24 hours of IV antibiotics, pain control, medical comanagement, and occupational and physical therapy. OT and PT were consulted to assist with activities of daily living and ambulation. Was made weightbearing as tolerated with anterior hip precautions with no active abduction. Pain was initially controlled with IV regimen. This was transitioned to oral once tolerating a by mouth intake. Was resumed on home diet and medications. Had a Moore catheter inserted and the operating room which was discontinued on postoperative day 1. Lovenox SCD and ROHITH hose were utilized for DVT prophylaxis. Vital signs remained stable to the hospital course. Labs were obtained which showed a final hemoglobin of 9.7 grams. BMP was reviewed and was stable. Physical examination throughout the hospital course showed an extremity that had sensation that was intact to light touch, palpable pulses, a benign wound, motor intact to the toes, ankle, and knee. Based on her social situation as well as her need for additional therapy she is being transferred to [facility] for continued skilled therapy. Instructions: Continue with weightbearing as tolerated and anterior hip precautions with no active abduction. Keep the wound dry. Do not shower or get wet. Do not bathe or soak the wound. Cover with dry gauze and tape. Change every 2-3 days as needed if there is any drainage. Cover wound while showering. Continue with physical therapy. Resume home diet. Report any fever over 101.5 Fahrenheit, uncontrolled pain, increased drainage, foul odor of drainage, new or increased calf pain or shortness of breath, or any other significant complaints. A 325mg dialy aspirin will be started after finishing anticoagulation if not allergic. Continue with ROHITH hose on the operative extremity until instructed otherwise. No driving until instructed otherwise. Follow up in approximately 10-14 days. Procedures Performed: see notes below List Procedures: Right total hip arthroplasty Results and Findings: Lab Pending Results 03/02/19 05:37: WBC 5.1, RBC 3.18 L, Hgb 9.7 L, Hct 29.5 L, MCV 92.8, MCH 30.5, MCHC 32.9, RDW 13.4, Plt Count 198, MPV 9.4 03/02/19 05:37: Sodium 142, Plasma Sodium 142, Potassium 4.4, Chloride 107 H, Carbon Dioxide 29.4, Anion Gap 10.0, BUN 11, Creatinine 0.90, Est GFR (Non-Af Amer) 66 D, BUN/Creatinine Ratio 12.2, Random Glucose 121 H, Calcium 8.5 Discharge Location: [facility] Disposition: SNF Condition: Good Discharge Activity: Weight bearing, Other - Anterior hip precautions with no active abduction Discharge Diet: General/regular food Half-Way Therapy: Physicial Therapy, Occupation Therapy Referrals: Mauri Herrera MD [Staff Physician] - 03/16/19 9:30 am Problem Oriented Discharge Instructions to Patient/Family: Total Hip Replacement, [id number]-Orrg Additional Patient Instructions (free text): To [facility] in [facility] for PT and OT to evaluate and treat. Please call and fax discharge information. Post-op follow up in the office with Dr. Herrera on Friday03/16/19 at 9:30am. Complete Home Medications List: Complete Home Medication List: Isosorbide Mononitrate [Imdur] 30 mg PO DAILY 12/21/13 Nitroglycerin 0.4 mg SL PRN PRN 12/21/13 Cholecalciferol (Vitamin D3) [Vitamin D3] 2,000 unit PO DAILY 06/19/17 atenolol 25 mg tablet 25 mg PO HS 03/14/18 atorvastatin 10 mg tablet 10 mg PO HS tab 03/14/18 melatonin 5 mg tablet 5 mg PO HS 03/14/18 prasterone (dhea) 25 mg capsule 5 mg PO DAILY 03/14/18 sertraline 50 mg tablet 50 mg PO DAILY 03/14/18 coconut oil 1,000 mg capsule 2,000 mg PO DAILY cap 03/19/18 coenzyme Q10 200 mg/gram oral powder 200 mg PO DAILY g 03/19/18 eszopiclone 2 mg tablet 2 mg PO HS 03/19/18 fish oil 400 mg-flaxseed 400 mg-prim,blk roller skates assembler,borag oils 200 mg capsule 1 cap PO DAILY cap 03/19/18 magnesium stearate powder 1 ea PO HS g 03/19/18 turmeric root extract 500 mg capsule 750 mg PO DAILY 03/19/18 Multivitamin [Daily Multiple Vitamin] 1 ea PO DAILY 02/10/19 estradiol 0.01% (0.1 mg/gram) vaginal cream 0.1 mg TP DAILY #43 g 02/25/19 estradiol 2 mg (7.5 mcg/24 hour) vaginal ring 2 mg VG Q3M #1 ea 02/25/19 modafinil 100 mg tablet 100 mg PO 0800,1200 tab 02/25/19 Biotin 5,000 mcg PO DAILY 03/01/19 Calcium Carb, Citrate/Vit D3 [Calcium + D3 ER Tablet] 600 mg PO DAILY 03/01/19 Enoxaparin Sodium [Lovenox] 40 mg SC Q24H #7 disp.syrin 03/04/19 Morphine Sulfate [Ms Contin] 15 mg PO Q12H #14 tablet.sa 03/04/19 Sennosides/Docusate Sodium [Senokot-S] 2 tab PO HS #60 tab 03/04/19 oxyCODONE HCL/ACETAMINOPHEN [Percocet 5 MG/325 MG] 2 tab PO Q4H PRN #60 tab 03/04/19
[2019-03-04] MEDS: MODAFINIL 100 MG PO SCH ×2 (08:13→11:24)
[2019-03-04] MEDS: MULTIVITAMINS 1 CAP CAPSULE PO SCH (08:15)
[2019-03-04] MEDS: COENZYME Q10 200 MG PO SCH (08:15)
[2019-03-04] MEDS: [UNRECOGNIZED DRUG - OTHER] PO SCH (08:15)
[2019-03-04] MEDS: COCONUT OIL 2000 MG PO SCH (08:15)
[2019-03-04] MEDS: ISOSORBIDE MONONITRATE 30 MG TAB.SR.24H PO SCH (08:15)
[2019-03-04] MEDS: Turmeric Root Extract [Turmeric] 500 MG PO SCH (08:16)
[2019-03-04] MEDS: CHOLECALCIFEROL 1,000 UNIT CAPSULE PO SCH (08:16)
[2019-03-04] MEDS: SERTRALINE HCL 50 MG TABLET PO SCH (08:16)
[2019-03-04] MEDS: PRASTERONE PO SCH (08:16)
[2019-03-04] MEDS: MORPHINE SULFATE 15 MG TABLET.SA PO SCH (08:19)
[2019-03-04] MEDS: ENOXAPARIN SODIUM 40 MG/0.4 ML SYRG SC SCH (11:23)
[2019-03-04 12:54] VITALS: BP 112/63
== END 2019-03-04 12:45 | DRG 470 ==
LOC: MS 08:30
PROVIDERS: ADMIT Orthopaedic Surgery; ATTEND Orthopaedic Surgery
CPT/HCPCS: 36415; 73502; 80048; 85027; 94660; 97110; 97116; 97161; 97165; 97530; 97535